=== PATIENT | female | born 1985 | race Hispanic/Latino ===

== ENCOUNTER 2017-11-20 17:41 | Emergency (ER) | payer BC, OTHER ==
[2017-11-20] MEDS ORDERED: Acetaminophen 500 MG TAB ONE (17:57)
[2017-11-20] MEDS ORDERED: Penicillin V Potassium 250 MG TAB ONE (18:13)
== END 2017-11-20 18:15 | disposition home or self-care (01) ==
LOC: NAV ERS 17:41
DX: J02.0 Streptococcal pharyngitis (principal); F32.9 Major depressive disorder, single episode, unspecified; Z79.899 Other long term (current) drug therapy
CPT/HCPCS: 87430; 99283

== ENCOUNTER 2018-01-23 13:57 | Emergency (ER) | payer BC, SELFPAY, OTHER ==
[2018-01-23] MEDS ORDERED: Ketorolac Tromethamine 60 MG/2 ML VIAL ONE (14:24)
[2018-01-23] MEDS ORDERED: Orphenadrine Citrate 60 MG/2 ML VIAL ONE (14:24)
== END 2018-01-23 14:46 | disposition home or self-care (01) ==
LOC: NAV ERS 13:57
DX: M54.5 Low back pain (principal); M54.2 Cervicalgia; F41.9 Anxiety disorder, unspecified; Z79.899 Other long term (current) drug therapy; V44.5XXA Car driver injured in collision with heavy transport vehicle or bus in traffic accident, initial encounter
CPT/HCPCS: 96372; J1885; J2360

== ENCOUNTER 2018-08-16 16:39 | Outpatient (CLI) | payer BC ==
--- NOTE | 2018-08-16 17:09 | RAD ---
LUMBAR SPINE THREE VIEWS: Date: 08-16-18 History: Cervicalgia, low back pain. FINDINGS: Vertebral body heights and intervertebral disc spaces are within normal limits. No fracture or sublux ation is seen involving the lumbar spine. No other findings. IMPRESSION: No acute osseous abnormality involving the lumbar spine. POS: [facility]
== END 2018-08-16 16:40 | disposition home or self-care (01) ==
LOC: NAV RAD 16:39
PROVIDERS: ATTEND Nurse Practitioner Family
DX: M54.2 Cervicalgia (principal)
CPT/HCPCS: 72100

== ENCOUNTER 2018-09-06 15:52 | Outpatient (CLI) | payer BC ==
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
== END 2018-09-06 15:53 | disposition home or self-care (01) ==
LOC: NAV RAD 15:52
DX: S13.4XXA Sprain of ligaments of cervical spine, initial encounter (principal); M43.8X2 Other specified deforming dorsopathies, cervical region
CPT/HCPCS: 72040

== ENCOUNTER 2019-04-07 20:17 | Emergency (ER) | payer BC ==
[2019-04-07] MEDS ORDERED: Ibuprofen 800 MG TAB ONE (20:29)
[2019-04-07] MEDS ORDERED: Ondansetron ODT 4 MG TAB ONE (20:29)
[2019-04-07] MEDS ORDERED: Dexamethasone 4 mg/ml Vial ONE (21:11)
== END 2019-04-07 21:55 | disposition home or self-care (01) ==
LOC: NAV ERS 20:17
DX: B34.9 Viral infection, unspecified (principal); J45.909 Unspecified asthma, uncomplicated; F41.9 Anxiety disorder, unspecified; F32.9 Major depressive disorder, single episode, unspecified; Z79.899 Other long term (current) drug therapy
CPT/HCPCS: 87081; 87430; 87804; 99283; J1100; Q0162

== ENCOUNTER 2019-10-13 19:25 | Emergency (ER) | payer BC ==
[2019-10-13] MEDS ORDERED: Mag-Al Plus 1200 MG/1200 MG/120 MG/30 ML UDCUP ONE (19:51)
[2019-10-13] MEDS ORDERED: Lidocaine Viscous Sol 2% 15 ml UD Cup ONE (19:51)
[2019-10-13 20:00] LABS: #Basophils 0.1 thou/uL (0.0-0.2); #Eosinphils 0.3 thou/uL (0.0-0.7); #Monocytes 0.4 thou/uL (0.11-0.59); #Neutrophils 4.6 thou/uL (1.40-6.50); %Basophils 1.3 % (0.0-1.0); %Lymphocytes 35.8 % (21.0-51.0); %Monocytes 4.8 % (0.0-10.0); %Neutrophils 54.2 % (42.0-75.0); Hemoglobin 12.3 g/dL (12.0-16.0); Mean Corpuscular HGB CONC 33.8 g/dL (32.0-36.0); Mean Corpuscular Hemoglobin 29.8 pg (27.0-31.0); Mean Corpuscular Volume 88.1 fL (78.0-98.0); Platelet Count 268 thou/uL (130-400); Red Blood Cell (RBC) Count 4.14 mill/uL (4.20-5.40); White Blood Cell (WBC) Count 8.5 thou/uL (4.8-10.8)
[2019-10-13 20:12] LABS: Bilirubin Negative (Negative); Blood, Urine Moderate (Negative); Glucose, Urine (Dipstick) Negative (Negative); Leukocyte Negative (Negative); Nitrite Negative (Negative); Protein, Urine (Dipstick) Negative (Neg-Trace); Urobilinogen 0.2 mg/dL (Less than 2)
[2019-10-13 20:15] LABS: ALT (SGPT) 16 U/L (8-55); AST (SGOT) 14 U/L (5-34); Albumin 4.5 g/dL (3.5-5.0); Alkaline Phosphatase 62 U/L (40-110); Anion Gap 14 mmol/L (10-20); BUN (Urea Nitrogen) 9 mg/dL (7.0-18.7); Bilirubin, Total 0.3 mg/dL (0.2-1.2); Calc. Creatinine Clearance 0 mL/min (70-130); Calcium 9.3 mg/dL (7.8-10.44); Carbon Dioxide 23 mmol/L (22-29); Chloride 106 mmol/L (98-107); Estimated GFR-MDRD Greater than 90; Glucose 84 mg/dL (70-105); Lipase 25 U/L (8-78); Potassium 3.7 mmol/L (3.5-5.1); Protein, Total 7.5 g/dL (6.0-8.3); Sodium 139 mmol/L (136-145)
[2019-10-13 20:15] LABS: Clarity SL HAZY (Clear)
[2019-10-13 20:16] LABS: Pregnancy Test - Urine (BHCG) Negative (Negative); Pregu Control Background? CLEAR/WHITE (CLR/WHITE); Pregu Control Bar Appear? YES (CONTROL BAR); Specific Gravity 1.025 (1.002-1.036)
[2019-10-13 20:23] LABS: Bacteria/HPF Rare-Few HPF (None Seen); RBC/HPF 0-3 HPF (0-3); Squamous Epithelial 0-3 HPF (0-3); WBC/HPF 0-3 HPF (0-3)
== END 2019-10-13 20:35 | disposition home or self-care (01) ==
LOC: NAV ERS 19:25
DX: R10.13 Epigastric pain (principal); J45.909 Unspecified asthma, uncomplicated; F41.9 Anxiety disorder, unspecified; F32.9 Major depressive disorder, single episode, unspecified; Z79.899 Other long term (current) drug therapy
CPT/HCPCS: 80053; 81003; 81015; 81025; 83690; 85025; 99284

== ENCOUNTER 2021-02-12 21:47 | Emergency (ER) | payer BC, OTHER ==
[2021-02-12] MEDS ORDERED: Morphine 4 MG/ML VIAL ONE (22:13)
[2021-02-12] MEDS ORDERED: Ondansetron PF 4 MG/2 ML Vial ONE (22:13)
[2021-02-12 22:18] LABS: #Basophils 0.1 thou/uL (0.0-0.2); #Eosinphils 0.4 thou/uL (0.0-0.7); #Lymphocytes 3.1 thou/uL (1.20-3.40); #Monocytes 0.5 thou/uL (0.11-0.59); #Neutrophils 3.1 thou/uL (1.40-6.50); %Basophils 1.2 % (0.0-1.0); %Eosinophils 5.7 % (0.0-10.0); %Lymphocytes 43.3 % (21.0-51.0); %Monocytes 6.7 % (0.0-10.0); Hemoglobin 13.1 g/dL (12.0-16.0); Mean Corpuscular HGB CONC 32.2 g/dL (32.0-36.0); Mean Corpuscular Hemoglobin 27.9 pg (27.0-31.0); Mean Corpuscular Volume 86.6 fL (78.0-98.0); Mean Platelet Volume 7.2 fL (7.4-10.4); Platelet Count 290 thou/uL (130-400); RBC Distribution Width 12.2 % (11.5-14.5); White Blood Cell (WBC) Count 7.2 thou/uL (4.8-10.8)
[2021-02-12 22:21] LABS: Bilirubin Negative (Negative); Blood, Urine Trace (Negative); Clarity Clear (Clear); Glucose, Urine (Dipstick) Negative (Negative); Ketone, Urine Negative (Negative); Leukocyte Negative (Negative); Nitrite Negative (Negative); Protein, Urine (Dipstick) Negative (Neg-Trace)
[2021-02-12 22:23] LABS: Specific Gravity, Urine 1.029 (1.002-1.036)
[2021-02-12 22:27] LABS: RBC/HPF 0-3 HPF (0-3); Squamous Epithelial 0-3 HPF (0-3); WBC/HPF 0-3 HPF (0-3)
[2021-02-12 22:28] LABS: Pregnancy Test - Urine (BHCG) Negative (Negative); Pregu Control Background? CLEAR/WHITE (CLR/WHITE); Pregu Control Bar Appear? YES (CONTROL BAR); Specific Gravity 1.029 (1.002-1.036)
[2021-02-12 22:36] LABS: ALT (SGPT) 15 U/L (8-55); AST (SGOT) 15 U/L (5-34); Albumin 4.3 g/dL (3.5-5.0); Alkaline Phosphatase 90 U/L (40-110); Anion Gap 14 mmol/L (10-20); BUN (Urea Nitrogen) 17 mg/dL (7.0-18.7); Bilirubin, Total 0.2 mg/dL (0.2-1.2); Calc. Creatinine Clearance 0 mL/min (70-130); Calcium 9.4 mg/dL (7.8-10.44); Carbon Dioxide 25 mmol/L (22-29); Chloride 104 mmol/L (98-107); Globulin 3.5 g/dL (2.4-3.5); Glucose 95 mg/dL (70-105); Lipase 46 U/L (8-78); Potassium 4.2 mmol/L (3.5-5.1); Protein, Total 7.8 g/dL (6.0-8.3); Sodium 139 mmol/L (136-145)
== END 2021-02-12 23:07 | disposition home or self-care (01) ==
LOC: NAV ERS 21:47
DX: K42.9 Umbilical hernia without obstruction or gangrene (principal); J45.909 Unspecified asthma, uncomplicated
CPT/HCPCS: 80053; 81003; 81015; 81025; 83605; 83690; 85025; 94760; 96374; 96375; J2270; J2405

== ENCOUNTER 2022-04-13 21:33 | Emergency (ER) | payer BC ==
[2022-04-13] MEDS ORDERED: Morphine 4 MG/ML VIAL ONE ×2 (22:02→23:31)
[2022-04-13] MEDS ORDERED: Sodium Chloride 0.9% 1,000 ML ONE (22:03)
[2022-04-13] MEDS ORDERED: Ondansetron PF 4 MG/2 ML Vial ONE (22:03)
[2022-04-13 22:06] LABS: Pregnancy Test - Urine (BHCG) Negative (Negative); Pregu Control Bar Appear? YES (CONTROL BAR)
[2022-04-13 22:07] LABS: Clarity Clear (Clear); Leukocyte Negative (Negative); Nitrite Negative (Negative); Pregu Control Background? CLEAR/WHITE (CLR/WHITE); Protein, Urine (Dipstick) Trace mg/dL (Neg-Trace); pH, Urine 8.5 (5.0-9.0)
[2022-04-13 22:08] LABS: Bilirubin Negative (Negative); Blood, Urine Trace (Negative); Glucose, Urine (Dipstick) Negative (Negative); Ketone, Urine 15 mg/dL (Negative)
[2022-04-13 22:14] LABS: Squamous Epithelial 0-3 HPF (0-3); WBC/HPF 0-3 HPF (0-3)
[2022-04-13 22:15] LABS: Bacteria/HPF None Seen HPF (None Seen)
[2022-04-13 22:20] LABS: #Basophils 0.1 thou/uL (0.0-0.2); #Eosinphils 0.4 thou/uL (0.0-0.7); #Monocytes 0.5 thou/uL (0.11-0.59); #Neutrophils 7.5 thou/uL (1.40-6.50); %Basophils 0.7 % (0.0-1.0); %Eosinophils 3.8 % (0.0-10.0); %Lymphocytes 25.8 % (21.0-51.0); %Monocytes 4.7 % (0.0-10.0); Hemoglobin 11.7 g/dL (12.0-16.0); Mean Corpuscular HGB CONC 30.5 g/dL (32.0-36.0); Mean Corpuscular Hemoglobin 27.1 pg (27.0-31.0); Mean Corpuscular Volume 88.9 fL (78.0-98.0); Mean Platelet Volume 7.5 fL (7.4-10.4); Platelet Count 302 thou/uL (130-400); RBC Distribution Width 14.2 % (11.5-14.5); White Blood Cell (WBC) Count 11.5 thou/uL (4.8-10.8)
[2022-04-13 22:40] LABS: ALT (SGPT) 9 U/L (8-55); AST (SGOT) 10 U/L (5-34); Albumin 4.2 g/dL (3.5-5.0); Alkaline Phosphatase 66 U/L (40-110); Anion Gap 14 mmol/L (10-20); BUN (Urea Nitrogen) 7 mg/dL (7.0-18.7); Bilirubin, Total 0.5 mg/dL (0.2-1.2); Calc. Creatinine Clearance 0 mL/min (70-130); Calcium 9.2 mg/dL (7.8-10.44); Carbon Dioxide 25 mmol/L (22-29); Chloride 102 mmol/L (98-107); Globulin 3.3 g/dL (2.4-3.5); Glucose 89 mg/dL (70-105); Lipase 20 U/L (8-78); Protein, Total 7.5 g/dL (6.0-8.3); Sodium 137 mmol/L (136-145)
[2022-04-13] MEDS ORDERED: Ketorolac Tromethamine 30 MG/ML VIAL ONE (22:52)
== END 2022-04-14 00:45 | disposition short-term general hospital (02) ==
LOC: NAV ERS 21:33
DX: R10.31 Right lower quadrant pain (principal); J45.909 Unspecified asthma, uncomplicated; Z79.899 Other long term (current) drug therapy
CPT/HCPCS: 74176; 80053; 81003; 81015; 81025; 83690; 85025; 96374; 96375; 96376; J1885; J2270; J2405; J7050

== ENCOUNTER → 2022-10-20 | Emergency (ER) | payer BC, OTHER ==
[~2022-10-20] MED LIST: Cyclobenzaprine 10 MG TAB ONE; Ketorolac Tromethamine 30 MG/ML VIAL ONE; Oseltamivir 75 MG CAP ONE
== END ==
LOC: NAV ERS 19:59
DX: M54.6 Pain in thoracic spine (principal)
CPT/HCPCS: 93005; 96372; J1885

== ENCOUNTER 2024-02-14 12:21 | Outpatient (CLI) | payer OTHER | END 2024-02-14 12:22 | disposition home or self-care (01) | LOC: NAV RAD 12:21 | PROVIDERS: ATTEND Nurse Practitioner Family | DX: M72.2 Plantar fascial fibromatosis (principal) ==